=== PATIENT | female | born 1965 | race Caucasian/White ===

== ENCOUNTER → 2019-12-27 15:05 | Outpatient (CLI) | payer BC, SELFPAY ==
--- NOTE | ~2019-12-27 | MM_ITS ---
EXAMINATION: MM screening esme BI w raj HISTORY: Screening mammogram, family history of breast cancer in her mother. TECHNIQUE: Craniocaudal and mediolateral oblique 3-D tomosynthesis images were obtained and synthetic 2-D images were generated. CAD analysis was submitted and interpreted. COMPARISON: 12/20/2018, 12/15/1930 BREAST PARENCHYMAL COMPOSITION: There are scattered areas of fibroglandular density. FINDINGS: There is no evidence of suspicious mass, calcification, or architectural distortion to sugg est malignancy in either breast. There has been no suspicious interval change. IMPRESSION: 1. No mammographic evidence of malignancy. 2. Recommend routine screening mammography in one year. BI-RADS Category 1: Negative Reviewed, dictated and finalized at location A. ARCH CHEF
== END ==
PROVIDERS: PCP Family Medicine Adolescent Medicine; Visit Provider Family Medicine Adolescent Medicine
DX: Z12.31 Encounter for screening mammogram for malignant neoplasm of breast (principal)
CPT/HCPCS: 77063; 77067

== ENCOUNTER → 2020-12-30 11:17 | Outpatient (CLI) | payer BC, SELFPAY ==
--- NOTE | ~2020-12-30 | MM_ITS ---
EXAMINATION: MM screening esme BI w raj HISTORY: Screening mammogram, family history of breast cancer in her mother. TECHNIQUE: Craniocaudal and mediolateral oblique 3-D tomosynthesis images were obtained and synthetic 2-D images were generated. CAD analysis was submitted and interpreted. COMPARISON: 12/27/2019, 12/20/2018, 12/15/2017 BREAST PARENCHYMAL COMPOSITION: There are scattered areas of fibroglandular density. FINDINGS: There is no evidence of suspicious mass, calcification, or architectural distortion to sugg est malignancy in either breast. There has been no suspicious interval change. IMPRESSION: 1. No mammographic evidence of malignancy. 2. Recommend routine screening mammography in one year. BI-RADS Category 1: Negative Reviewed, dictated and finalized at location A. CAL ASSISTANT
== END ==
PROVIDERS: Visit Provider Obstetrics & Gynecology
DX: Z12.31 Encounter for screening mammogram for malignant neoplasm of breast (principal)
CPT/HCPCS: 77063; 77067

== ENCOUNTER → 2021-12-31 10:16 | Outpatient (CLI) | payer BC, SELFPAY ==
--- NOTE | ~2021-12-31 | MM_ITS ---
EXAMINATION: MM screening esme BI w raj HISTORY: Screening mammogram TECHNIQUE: Craniocaudal and mediolateral oblique 3-D tomosynthesis images were obtained and synthetic 2-D images were generated. CAD analysis was submitted and interpreted. COMPARISON: 12/30/2020, 12/27/2019, 12/20/2018 bilateral screening mammogram examinations BREAST PARENCHYMAL COMPOSITION: There are scattered areas of fibroglandular density. FINDINGS: There is a biopsy marker in the left; history of prior benign left breast biopsy. Focal asymmetric density is noted in the lower right breast at mid depth on MLO view, without apparen t correlate on CC projection; this is likely a summation shadow, but additional diagnostic views are recommended to confirm this. Otherwise there is no evidence of suspicious mass, calcification, or architectural distortion to sugg est malignancy in either breast. There has been no other suspicious interval change. IMPRESSION: 1. Asymmetric opacity in the lower right breast on screening MLO view; this may be a summation shadow of overlapping fibroglandular tissue 2. Diagnostic right mammogram is recommended, with ultrasound if required BI-RADS Category 0: Incomplete: Needs additional imaging evaluation. Reviewed, dictated and finalized at location A. RTMENT COORDINATOR
== END ==
PROVIDERS: PCP Obstetrics & Gynecology; Visit Provider Obstetrics & Gynecology
DX: Z12.31 Encounter for screening mammogram for malignant neoplasm of breast (principal); R92.8 Other abnormal and inconclusive findings on diagnostic imaging of breast
CPT/HCPCS: 77063; 77067

== ENCOUNTER → 2022-01-23 09:18 | Outpatient (CLI) | payer BC, SELFPAY ==
--- NOTE | ~2022-01-23 | MMUS_ITS ---
EXAMINATION: MM diagnostic esme RT w raj, US breast RT limited HISTORY: Follow-up right breast asymmetry. TECHNIQUE: Additional 3-D tomosynthesis images of the right breast were performed and synthetic 2-D i mages were generated. CAD analysis was submitted and interpreted. High resolution Limited right breas t ultrasound was performed. COMPARISON: Comparison to multiple prior studies sequentially, with oldest reviewed study dated 11/10. BREAST PARENCHYMAL COMPOSITION: Breast composed of scattered areas of fibroglandular density FINDINGS: MAMMOGRAPHIC FINDINGS: There is a persistent asymmetry in the inferior aspect of the left breast. No suspicious calcificatio ns or architectural distortion. ULTRASOUND: Limited left breast ultrasound: At 7:00, 4 cm from the nipple there is an oval hypoechoic mass with s ome irregular margins measuring 9 x 5 x 8 mm. There are small internal cystic changes. No internal va scularity. There are areas of posterior acoustic enhancement. Parallel orientation. IMPRESSION: 1. Slightly irregular shaped hypoechoic right breast mass at 7:00, 4 cm from the nipple which likely corresponds to the mammographic finding. 2. Ultrasound-guided right breast biopsy recommended. BI-RADS category 4, suspicious findings. Reviewed, dictated and finalized at location B. ERY OPERATOR IMPRESSION: 1. Slightly irregular shaped hypoechoic right breast mass at 7:00, 4 cm from th e nipple which likely corresponds to the mammographic finding. 2. Ultrasound-guided right breast biopsy recommended. BI-RADS category 4, suspicious findings.
== END ==
PROVIDERS: PCP Obstetrics & Gynecology; Visit Provider Obstetrics & Gynecology
DX: R92.8 Other abnormal and inconclusive findings on diagnostic imaging of breast (principal)
CPT/HCPCS: 76642; 77061; 77065; G0279

== ENCOUNTER 2022-02-18 12:42 | Outpatient (CLI) | payer BC, SELFPAY ==
--- NOTE | ~2022-02-18 | US_ITS ---
US breast RT limited DATE: 02/18/2022 13:39 INDICATION: The patient presented for biopsy of a 7:00 breast mass 4 cm from nipple TECHNIQUE: The left 7:00 mass for several minutes from the nipple was scanned with real-time and colo r flow imaging. COMPARISON: 01/23/2022 diagnostic right mammogram and limited right breast ultrasound examination FINDINGS: There is a circumscribed parallel 4.7 x 9.5 x 6.8 mm mass at 7:00 4 cm from the nipple. The re is through transmission and posterior enhancement. There is no internal vascularity or posterior s hadowing. The sonographic appearance is most suggestive of benign process. There is no significant ch sandhya compared to 01/23/2022. 6 month follow-up targeted ultrasound at 7:00 4 cm from the nipple is re commended to document stability. I showed the patient the imaging findings and indicated that the lesion was almost certainly benign a nd that it did not believe that biopsy was necessary. I recommended 6 month follow-up. The patient ag april and indicated she would return for the follow-up imaging. IMPRESSION: BI-RADS Category 3: Probably benign finding Recommendation: Targeted 6 month right breast ultrasound follow-up at 7:00 4 cm from nipple Reviewed, dictated and finalized at Location A. Reviewed, dictated and finalized at location A. LER
== END 2022-02-18 12:43 | disposition home or self-care (01) ==
PROVIDERS: PCP Obstetrics & Gynecology; Visit Provider Surgery
DX: R92.8 Other abnormal and inconclusive findings on diagnostic imaging of breast (principal)
CPT/HCPCS: 76642

== ENCOUNTER → 2022-07-28 12:38 | Outpatient (CLI) | payer BC, SELFPAY ==
--- NOTE | ~2022-07-28 | US_ITS ---
US breast RT limited DATE: 07/28/2022 13:00 INDICATION: Six-month follow-up of 7:00 lesion 4 cm from nipple TECHNIQUE: Real-time and color flow imaging targeted at 7:00 4 cm from nipple COMPARISON: 02/18/2022 limited right breast ultrasound FINDINGS: There has been some interval change since 02/18/2022. The lesion currently measures approxim ately 6.5 x 9.7 x 8 mm compared to 4.7 x 9.5 x 6.8 mm previously, demonstrating mild interval enlarg ement. The margins previously were circumscribed but now not completely circumscribed and there is in terval irregularity of the outline compared to the prior study. In addition, on color flow imaging th ere is prominent vascularity in the region of the lesion in contrast to the prior examination. Thus, t lesion developed suspicious sonographic features since 02/18/2022 and biopsy is now recommende d. IMPRESSION: Interval mildly increased size and irregularity and incomplete circumcision of the margin s of the right breast 7:00 lesion since 02/18/2022, with increased vascularity in the area. These find ings are of concern for possible malignancy. Ultrasound-guided biopsy of right breast 7:00 lesion 4 cm from nipple is recommended BI-RADS Category 4 Dr. Valle telephoned the ultrasound report and recommendation for ultrasound-guided biopsy of the rig t breast 7:00 lesion on 07/28/2022 [place] [address] Jalil Fatima. Reviewed, dictated and finalized at Location A. Reviewed, dictated and finalized at location A. IMPRESSION: Interval mildly increased size and irregularity and incomplete circ umcision of the margins of the right breast 7:00 lesion since 02/18/2022, with i ncreased vascularity in the area. These findings are of concern for possible ma lignancy. Ultrasound-guided biopsy of right breast 7:00 lesion 4 cm from nipple is recomm ended BI-RADS Category 4 Dr. Valle telephoned the ultrasound report and recommendation for ultrasound-chelsea ded biopsy of the right breast 7:00 lesion on 07/28/2022 [place] [address] Garcia.
== END ==
PROVIDERS: PCP Obstetrics & Gynecology; Visit Provider Obstetrics & Gynecology
DX: R92.8 Other abnormal and inconclusive findings on diagnostic imaging of breast (principal)
CPT/HCPCS: 76642

== ENCOUNTER 2022-09-15 10:03 | Outpatient (CLI) | payer BC, SELFPAY ==
--- NOTE | ~2022-09-15 | MMUS_ITS ---
EXAMINATION: US breast biopsy RT w image, MM post biopsy invasive RT DATE: 09/15/2022 11:40 (accession [id number]), 09/15/2022 11:28 (accession [id number]) INDICATION: Indeterminate mass of the lower inner quadrant of the right breast Ultrasound-guided core biopsy is requested to evaluate for malignancy. TECHNIQUE AND FINDINGS: The risks and potential benefits of the procedure were discussed with the patient including bleeding and infection. A time out was performed. The skin of the right breast was prepared and draped in usua l sterile fashion. 1% lidocaine was used for superficial anesthesia. 1% lidocaine with epinephrine wa s used for deep anesthesia. A vacuum-assisted biopsy needle was advanced through to the outer edge of the region of interest from an inferior approach utilizing sonographic guidance. A total of three tissue core samples were obtai niraj through the lesion. A tissue marker clip was then placed at the biopsy site. Hemostasis was achie germain. A sterile bandage was applied. The patient tolerated procedure well and there was no evidence of immediate complication. The patient was given verbal instructions to return to the Emergency Department in the event of severe breast pa in or rapid breast enlargement. A two view right breast mammogram was obtained to document tissue mar ker clip placement. IMPRESSION: 1. Successful ultrasound-guided vacuum-assisted biopsy of right breast mass with tissue marker placem ent. Reviewed, dictated and finalized at location A. IMPRESSION: 1. Successful ultrasound-guided vacuum-assisted biopsy of right breast mass wit h tissue marker placement.
== END 2022-09-15 10:04 | disposition home or self-care (01) ==
PROVIDERS: Visit Provider Surgery
DX: N63.10 Unspecified lump in the right breast, unspecified quadrant (principal)
CPT/HCPCS: 19083; 88305; A4648

== ENCOUNTER → 2023-02-25 10:26 | Outpatient (CLI) | payer BC, SELFPAY ==
--- NOTE | ~2023-02-25 | MM_ITS ---
EXAMINATION: MM screening esme BI w raj HISTORY: Screening TECHNIQUE: Craniocaudal and mediolateral oblique 3-D tomosynthesis images were obtained and synthetic 2-D images were generated. CAD analysis was submitted and interpreted. COMPARISON: Comparison to multiple prior studies sequentially, with oldest reviewed study dated 12/09. BREAST PARENCHYMAL COMPOSITION: Breast composed of scattered areas of fibroglandular density FINDINGS: There is no evidence of suspicious mass, calcification, or architectural distortion to sugg est malignancy in either breast. There has been no suspicious interval change. IMPRESSION: 1. No mammographic evidence of malignancy. 2. Recommend routine screening mammography in one year. BI-RADS Category 1: Negative Reviewed, dictated and finalized at location A. MENT CONTROL ASSOCIATE
== END ==
PROVIDERS: PCP Obstetrics & Gynecology; Visit Provider Obstetrics & Gynecology
DX: Z12.31 Encounter for screening mammogram for malignant neoplasm of breast (principal)
CPT/HCPCS: 77063; 77067

== ENCOUNTER 2024-04-26 14:08 | Outpatient (CLI) | payer BC, SELFPAY ==
--- NOTE | ~2024-04-26 | MM_ITS ---
EXAMINATION: MM screening esme BI w raj HISTORY: Screening TECHNIQUE: Craniocaudal and mediolateral oblique 3-D tomosynthesis images were obtained and synthetic 2-D images were generated. CAD analysis was submitted and interpreted. COMPARISON: Comparison to multiple prior studies sequentially, with oldest reviewed study dated 12/09. BREAST PARENCHYMAL COMPOSITION: Not dense: There are scattered areas of fibroglandular density. FINDINGS: There is no evidence of suspicious mass, calcification, or architectural distortion to sugg est malignancy in either breast. There has been no suspicious interval change. IMPRESSION: 1. No mammographic evidence of malignancy. 2. Recommend routine screening mammography in one year. BI-RADS Category 1: Negative Reviewed, dictated and finalized at location B.
== END 2024-04-26 14:09 | disposition home or self-care (01) ==
LOC: MICIMG 14:09
PROVIDERS: PCP Obstetrics & Gynecology; Visit Provider Obstetrics & Gynecology
DX: Z12.31 Encounter for screening mammogram for malignant neoplasm of breast (principal)
CPT/HCPCS: 77063; 77067